=== PATIENT | female | born 1935 | race Caucasian/White ===

== ENCOUNTER 2020-06-30 12:33 | Outpatient (CLI) | payer MEDICARE, SELFPAY ==
--- NOTE | ~2020-06-30 | US_ITS ---
EXAMINATION: US venous doppler LE RT EXAM DATE: 06/30/2020 13:30 INDICATION: Right leg pain. TECHNIQUE: Multiple grayscale, color flow and Doppler images of the right lower extremity deep venous system were obtained and reviewed. There is no prior study for comparison. FINDINGS: The right common femoral, femoral and profunda veins demonstrate normal color flow, respira tory variation, augmentation and compressibility. Compressibility, color flow confirmed within the r ight popliteal, posterior tibial, peroneal, and greater saphenous veins. IMPRESSION: 1. No right lower extremity deep venous thrombosis. Reviewed, dictated and finalized at location B.
[2020-06-30 13:56] LABS: Basophils Absolute Auto 0.1 K/mm3 (0.0-0.1); Basophils Percent Auto 0.6 % (0.2-1.2); Eosinophils Absolute Auto 0.2 K/mm3 (0-0.3); Eosinophils Percent Auto 1.8 % (0-4.4); Hematocrit 45.3 % (37.0-47.0); Hemoglobin 15.6 g/dL (12.0-15.0); Immature Granulocyte Absolute 0.02 K/mm3 (0.00-0.031); Immature Granulocyte Percent A 0.2 % (0-0.5); Lymphocytes Absolute Auto 2.39 K/mm3 (0.9-3.2); Lymphocytes Percent Auto 28.6 % (18.3-44.2); Mean Corpuscular HGB Conc 34.4 g/dl (32-36); Mean Corpuscular Hemoglobin 31.2 pg (26-34); Mean Corpuscular Volume 90.6 fl (80-100); Monocytes Absolute Auto 0.8 K/mm3 (0.1-0.6); Monocytes Percent Auto 9.7 % (2.6-8.5); Neutrophils Percent Auto 59.1 % (45.5-73.1); Platelet Count Result 243 k/mm3 (150-375); Red Cell Distribution Width 12.4 % (11.5-14.5); White Blood Count 8.4 K/mm3 (4.5-10.0)
[2020-06-30 14:09] LABS: D Dimer 0.39 ug/mL (<0.48)
[2020-06-30 14:11] LABS: Alanine Aminotransferase 20 U/L (4-35); Albumin Level 4.3 g/dL (3.5-5.1); Alkaline Phosphatase 64 U/L (38-126); Anion Gap 12 mmol/L (8-16); Aspartate Amino Transferase 28 U/L (14-36); Bilirubin,Total 0.4 mg/dL (0.2-1.3); Blood Urea Nitrogen 11 mg/dL (7-17); Calcium 9.8 mg/dL (8.4-10.2); Carbon Dioxide 24 mmol/L (22-30); Chloride 103 mmol/L (98-107); Estimated Glomerular Filt Rate > 60; Glucose 129 mg/dL (65-105); Potassium 4.1 mmol/L (3.4-5.0); Sodium 139 mmol/L (137-145)
== END 2020-06-30 12:34 | disposition home or self-care (01) ==
LOC: ANHIMG 12:45
PROVIDERS: PCP Physician Assistant; Visit Provider Physician Assistant
DX: M79.661 Pain in right lower leg (principal)
CPT/HCPCS: 36415; 80053; 85025; 85380; 93971

== ENCOUNTER 2020-07-01 11:35 | Observation (INO) | payer MEDICARE, SELFPAY ==
--- NOTE | ~2020-07-01 | CT_ITS ---
EXAMINATION: CT brain wo con EXAM DATE: 07/01/2020 14:26 INDICATION: Transient ischemic attack. Temporary change in awareness. TECHNIQUE: Spiral CT of the head was performed without contrast. Axial, coronal and sagittal images were reviewed. The dose-length product (DLP) for this examination was 605.33 mGy-cm. The exposure w as tailored according to patient size, and iterative reconstruction (ASIR) was used as additional dos e reduction technique. There is no prior study for comparison. FINDINGS: There is no acute intraparenchymal hemorrhage. No evidence of intraparenchymal brain mass lesion. No evidence of acute infarction. Please note that initial head CT has limited sensitivity f or small or acute infarctions. There is moderate periventricular and subcortical hypodensity, nonspec ific but probably related to small vessel ischemic disease. There is moderate prominence of the sul ci and ventricles related to cerebral atrophy. There is intracranial carotid arteriosclerosis. The re are no extra-axial collections. There is no mass effect or midline shift. Patient has had bilate ral ocular lens surgery. There is old left medial orbital wall fracture. Soft tissue is unremarkable. The visualized sinuses and mastoid air cells are well aerated. IMPRESSION: 1. No acute intracranial findings. 2. Chronic age related findings. Reviewed, dictated and finalized at location B.
--- NOTE | ~2020-07-01 | CT_ITS ---
EXAMINATION: CTA brain carotid EXAM DATE: 07/01/2020 23:48 INDICATION: Intermittent neurological symptoms. Temperature change in awareness. Transient ischemic a ttack. TECHNIQUE: Spiral CTA of the carotid arteries was performed with intravenous injection 100 cc of Om nipaque 350. Axial, coronal, sagittal reformatted images reviewed. Additional reformatted images cre ated on dedicated 3-D workstation. NASCET comparable standard used to assess the degree of arterial stenosis. Spiral CT angiogram cerebral arteries performed with the same intravenous injection of con trast. Source images of the brain CTA transferred to dedicated workstation for 3-D rotational image c reation. Coronal, sagittal maximum intensity pixel images also reviewed. The dose-length product (D LP) for this examination was 967.37 mGy-cm. The exposure was tailored according to patient size, an d iterative reconstruction (ASIR) was used as additional dose reduction technique. Correlation is mad e to noncontrast head CT from 07/01/2020. FINDINGS: There is mild bilateral carotid bulb arterial sclerosis with 0% stenosis bilaterally. There is some tortuosity of the left internal carotid artery distally. Carotid siphons are widely patent b ilaterally. The left vertebral artery is dominant. There is right-sided posterior communicating arter y dominant posterior cerebral artery. There is no carotid or vertebral basilar arterial dissection or fibromuscular dysplasia. There are no cerebral artery aneurysms. There is symmetric cerebral arter y arborization. The sagittal, transverse and sigmoid sinuses enhance normally, no venous sinus thromb osis. Internal cerebral veins also enhance normally. There is cerebral and cerebellar atrophy and m icroangiopathy. Bilateral cataract surgery. IMPRESSION: Mild bilateral carotid arteriosclerosis, 0% stenosis bilaterally. Reviewed, dictated and finalized at location B.
--- NOTE | ~2020-07-01 | XR_ITS ---
XR chest 1V DATE: 07/01/2020 14:26 INDICATION: Shortness of breath, left-sided chest pain TECHNIQUE: AP chest COMPARISON: None FINDINGS: Mild cardiac megaly. Mild aortic unfolding. No hilar or mediastinal enlargement. No pulmonary infiltrate or consolidation, pleural effusion or pulmonary vascular congestion or pneumo thorax. Diffuse osteopenia. IMPRESSION: Mild cardiomegaly No active pulmonary disease Reviewed, dictated and finalized at location A.
[2020-07-01 13:28] VITALS: BP 146/76; PULSE 82; RESP 16; TEMP 36.5; O2SAT 96
--- NOTE | 2020-07-01 13:37 | ECG_ITS ---
Measurements Intervals [place] Rate: 67 P: 14 MI: 163 QRS: -50 QRSD: 110 T: 68 QT: 408 QTc: 431 Interpretive Statements SINUS RHYTHM VENTRICULAR PREMATURE COMPLEX LOW QRS VOLTAGE IN PRECORDIAL LEADS LEFT ANTERIOR FASCICULAR BLOCK BORDERLINE ST-T WAVE ABNORMALITY- HIGH LATERAL LEADS BASELINE ARTIFACT- I, II, III, AVR, AVL, AVF ABNORMAL ECG Electronically Signed On 07-01-2020 13:48:38 CDT by Morgan Blanchard D.O.
[2020-07-01 14:04] LABS: Basophils Absolute Auto 0.1 K/mm3 (0.0-0.1); Basophils Percent Auto 0.7 % (0.2-1.2); Eosinophils Absolute Auto 0.2 K/mm3 (0-0.3); Eosinophils Percent Auto 2.4 % (0-4.4); Hemoglobin 15.9 g/dL (12.0-15.0); Immature Granulocyte Absolute 0.02 K/mm3 (0.00-0.031); Immature Granulocyte Percent A 0.3 % (0-0.5); Lymphocytes Percent Auto 37.3 % (18.3-44.2); Mean Corpuscular HGB Conc 34.6 g/dl (32-36); Mean Corpuscular Hemoglobin 31.1 pg (26-34); Mean Platelet Volume 9.3 fl (7.4-10.4); Monocytes Absolute Auto 0.5 K/mm3 (0.1-0.6); Monocytes Percent Auto 7.8 % (2.6-8.5); Neutrophils Absolute Auto 3.5 K/mm3 (1.3-6.7); Neutrophils Percent Auto 51.5 % (45.5-73.1); Platelet Count Result 249 k/mm3 (150-375); Red Blood Count 5.11 M/mm3 (4.2-5.4); Red Cell Distribution Width 12.3 % (11.5-14.5); White Blood Count 6.7 K/mm3 (4.5-10.0)
[2020-07-01 14:15] LABS: Prothrombin Time 12.6 Seconds (11.1-14.7)
[2020-07-01 14:16] LABS: Anion Gap 9 mmol/L (8-16); Blood Urea Nitrogen 11 mg/dL (7-17); Calcium 9.9 mg/dL (8.4-10.2); Carbon Dioxide 28 mmol/L (22-30); Chloride 103 mmol/L (98-107); Estimated CRCL calculation 53 ml/min; Estimated Glomerular Filt Rate > 60; Glucose 117 mg/dL (65-105); Partial Thromboplastin Time 29.2 SECONDS (22.3-36.8); Potassium 4.2 mmol/L (3.4-5.0); Sodium 140 mmol/L (137-145)
[2020-07-01 14:28] LABS: Troponin I < 0.012 ng/mL (0.000-0.034)
[2020-07-01 16:06] VITALS: BP 121/59; PULSE 105; RESP 20; O2SAT 95
--- NOTE | 2020-07-01 17:44 | ED.NEUROSD ---
HPI - Neuro Symptoms/Deficit General Chief Complaint: Neuro Symptoms/Deficit Stated Complaint: more tests for poss TIA Time Seen by Provider: 07/01/20 17:02 Source: patient Mode of arrival: ambulatory Limitations: no limitations History of Present Illness HPI Narrative: Patient presents at the request of her primary care provider for neuro evaluation to rule out possible TIAs. Patient states 2 days ago she had a crown like headache for which she took not aspirin and it resolved. Patient denies any accompanying symptoms to the headache including but not limited to visual changes, nausea, vomiting, diarrhea, fever, chills, changes to hearing. Patient states this morning at approximately 9 AM she began having a tingling throbbing sensation to her right leg that did not stop after rotating her ankle as she typically does. She states that she then started having some tingling to her scalp and across her face. She denies any incidence of inability to speak, muscle weakness, changes in vision or hearing, nausea, vomiting, diaphoresis, chest pain, shortness of breath. Patient reports she also felt slightly dizzy at this time. 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 Patient denies having any chronic medical diseases or taking any daily medications. Patient denies taking any new medications or supplements other than her typical daily vitamins. Patient states that she did have a stressful event in her life a few weeks ago and believes that this is due to the stress. Patient reports that at this time she does not have any symptoms at all and feels well. Related Data Home Medications Medication Instructions Recorded Confirmed tebulvbkanxq-qpg-lnry-FA-vit K tablet PO 07/01/20 [Adults Multivitamin] Allergies Allergy/AdvReac Type Severity Reaction Status Date / Time sulfamethoxazole AdvReac Rash Verified 07/01/20 13:36 [From Sulfamethoxazole-Trimethoprim] trimethoprim AdvReac Rash Verified 07/01/20 13:36 [From Sulfamethoxazole-Trimethoprim] Review of Systems Review of Systems: Narrative: CONSTITUTIONAL: Denies fever, chills, or sweats. EYES: Denies visual changes, redness, or discharge. ENT: Denies rhinorrhea, congestion, sore throat, or otalgia. CARDIOVASCULAR: Denies chest pain, palpitations, or edema. RESPIRATORY: Denies cough or dyspnea. GASTROINTESTINAL: Denies abdominal pain, nausea, vomiting, or diarrhea. GENITOURINARY: Denies dysuria or hematuria. SKIN: Denies rash or itching. MUSCULOSKELETAL: Denies back pain, myalgia, or joint pain NEUROLOGIC: Reports resolved headache,dizziness, tingling denies changes, numbness or weakness. PSYCHIATRIC: Denies anxiety or depression. [facility] Social History Social History (System 06/30/20 @ 13:10 by Maddison Bartlett) Gender identity (if verbalized by the patient): Female Sexual Orientation (if Verbalized by the Patient): Straight or Heterosexual Exam Narrative: Exam Narrative: GENERAL: Well-appearing, well-nourished. Patient smiling and talking appropriately. No asymmetry noted to face. HEAD: Normocephalic, atraumatic. No lacerations or hematomas. EYES: PERRLA and EOMI. ENT: Nares clear, no rhinorrhea or epistaxis. Mucous membranes moist. Oropharynx without tonsillar hypertrophy exudate or other lesions. Bilateral TMs pearly lorenzo nonbulging. No hemotympanum NECK: Supple. No adenopathy or masses. No vertebral tenderness or loss of ROM. CHEST: Clear to auscultation. No respiratory distress. No wheezes rales or rhonchi HEART: Regular rate and rhythm. Normal peripheral pulses. ABDOMEN: Soft, nontender, nondistended, normal active bowel sounds. No bruises noted. EXTREMITIES: Minimal bilateral lower edema. Sensation and range of motion intact to all extremities. No unilateral deficits. SKIN: Warm, dry, no rash. NEURO: No focal deficits. Alert and oriented x3. PSYCH: Normal mood and affect. Course Vital Signs Vital signs
[2020-07-01 17:48] LABS: Add Urine Microscopic? YES; Appearance Urine Clear (Clear); Bacteria Urine Trace /hpf; Bilirubin Urine Negative (Negative); Blood Urine Negative (Negative); Color Urine Yellow (Yellow); Glucose Urine UA Negative (Negative); Ketones Urine Negative (Negative); Leukocyte Esterase Ur 1+ LEU/UL (Negative); Mucus Urine Rare /lpf; Nitrate Urine Negative (Negative); Protein Urine Negative (Negative); Specific Grav Ur 1.015 (1.001-1.035); Squamous Epithelial Cell Urine Rare /hpf (Few); Urobilinogen Urine Negative mg/dL (<2.0)
--- NOTE | 2020-07-01 18:22 | PC.NURSE ---
this RN to bedside. SL inserted per protocol for admission to facility. all explained to patient. tolerated well. resting on stretcher. blanket given. tray ordered. patient does not eat chicken. assisted to use TV. call light in reach.
[2020-07-01 19:36] VITALS: BP 159/79; PULSE 64; RESP 16; O2SAT 100
[2020-07-01 19:45] VITALS: BP 103/51; PULSE 87; RESP 16; O2SAT 94
--- NOTE | 2020-07-01 20:10 | ADMGEN ---
This patient, Rekha Llanos, was admitted to 2 Medical Room 259-. Patient/family oriented to hospital policies and general routines including ID bracelet, bed and alarms, visiting hours, pain management, procedures, bathroom and other care routines, personal items, smoking policy, room service/diet, and visiting hours. Valuables list has been completed. Information on how to activate the Rapid Response Team has been discussed. Patient/Family are encouraged to report perceived risks to care and to ask questions if they do not understand what they are told or what they should do.
[2020-07-01 20:45] VITALS: PULSE 74
[2020-07-01] MEDS: NITROFURANTOIN MONOHYD MACROCR 100 MG CAP PO (20:57)
[2020-07-01 22:00] VITALS: BP 129/61; PULSE 73; RESP 22; TEMP 36.1; O2SAT 96
[2020-07-01 22:06] VITALS: BMI 26.4
[2020-07-02] VITALS: PULSE 56
[2020-07-02 02:08] LABS: Glucose Point of Care 116 (65-105)
[2020-07-02 04:00] VITALS: PULSE 55
[2020-07-02 05:43] VITALS: BP 129/58; PULSE 55; RESP 20; TEMP 36.1; O2SAT 93
[2020-07-02 08:00] VITALS: PULSE 68
--- NOTE | 2020-07-02 08:02 | PM.SD ---
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 The patient woke up in the morning and had cap like headache for which she took a total of 9 baby aspirin. A few hours later she began having in her right leg and foot as well as cramping in her toes. She reports that she gets sensations in her feet frequently over the last month and is usually relieved by rotating her ankle. She had a venous Doppler performed in the ER that was negative for DVT. Shortly after the leg tingling she began having tingling in her scalp in across her face. She no longer had a headache at this time. The tingling involved both sides her face. She did not have any difficulty speaking or any muscle weakness. She had did not have any visual changes. She did feel slightly off/funny. She reports that the symptoms improved after prayer. She has been having some increased urinary frequency. She reports that she has had intermittent dysuria and itching throughout her whole life. It sounds as if she has had a recurrence of the dysuria over the last couple of days. She denies any increased urinary urgency or foul-smelling urine. She denies any nausea, vomiting, decreased appetite, fevers or chills. She reports that she is back to her usual condition and would like to go home. [facility] Past Medical History Medical History Poliomyelitis Surgical History Surgical History History of bilateral cataract extraction Family History Family History Other No significant family history Social History Social History (Updated 07/02/20 @ 08:11 by Felicia Osei DO) Social History: She is and lives in her own home in [place]. She is independent activities of daily living and still drives. She has 5 children who reportedly healthy. 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 Smoking status: Never smoker Alcohol intake: never Substance use: never Substance use type: does not use Gender identity (if verbalized by the patient): Female Sexual Orientation (if Verbalized by the Patient): Straight or Heterosexual Spiritual care concerns: No Same Day Admit/Disch: Med Pre-admit Medications Home Medications Medication Instructions Recorded Confirmed Type vvqlbjnxukhg-pxj-beur-FA-vit K 1 tablet PO DAILY 07/01/20 07/01/20 History [Adults Multivitamin] Exam Narrative: Exam Narrative: PHYSICAL EXAM: WEIGHT 65.6 kg BMI 26.5 General: No acute distress, well-developed well-nourished HEENT: Mucous membranes are moist, no oral pharyngeal erythema, pupils are equal and reactive, head is normocephalic atraumatic Respiratory: Clear to auscultation bilaterally, no increased work of breathing Cardiovascular: Normal S1-S2, regular rate, regular rhythm Gastrointestinal: Soft, nontender, nondistended, positive bowel sounds Skin: No jaundice, no pallor Musculoskeletal: 5/5 instant powder supervisor strength bilaterally, 5/5 dorsiflexion and plantar flexion, trace edema to bilateral lower extremities Neurological: Alert and oriented x4, speech is clear, no facial asymmetry, yqoyqf-me-sylk intact, rapid alternating movements intact with consideration for patient's age, cyep-on-uwhr intact, no paresthesias or sensory deficits Psychiatric: Appropriate mood and affect, pleasant and cooperative : Deferred Hematologic/lymphatic: No bruising, petechiae or lymphadenopathy DS: Data Data Completed and Pending Labs on day of discharge: Labs from last 24 hours 07/02/20 07/01/20 07/01/20 00:33 17:29 13:55 WBC RBC Hgb
[2020-07-02] MEDS: NITROFURANTOIN MONOHYD MACROCR 100 MG CAP PO (08:56)
== END 2020-07-02 10:17 | disposition home or self-care (01) ==
LOC: ANHED 18:44 → ANH2MED 07-02 08:08
PROVIDERS: Physician Assistant; Admitting Provider Internal Medicine; Emergency Provider Emergency Medicine; PCP Physician Assistant; Visit Provider Internal Medicine
DX: R30.0 Dysuria (principal); R29.818 Other symptoms and signs involving the nervous system; R35.0 Frequency of micturition; Z86.12 Personal history of poliomyelitis; N39.0 Urinary tract infection, site not specified
CPT/HCPCS: 36415; 70450; 70496; 70498; 71045; 80048; 81001; 84484; 85025; 85610; 85730; 87086; 87088; 93005; 99285; A9270; G0378; Q9967

== ENCOUNTER 2020-08-06 12:13 | Inpatient (IN) | payer MEDICARE, SELFPAY ==
--- NOTE | ~2020-08-06 | CT_ITS ---
EXAMINATION: CT abdomen pelvis w con DATE: 08/06/2020 13:25 INDICATION: Low abdominal pain. TECHNIQUE: Computed tomography (CT) of the abdomen and pelvis was performed with 100 mL Omnipaque 350 intravenous contrast. Automated exposure control and iterative reconstruction technique were employe d. The dose-length product was 359.79 mGy-cm. COMPARISON: None. FINDINGS: The visualized portions of the lung bases demonstrate mild atelectasis. Calcified right zeferino g nodules are consistent with old granulomatous disease. No pleural effusion. The heart size is koki l. No pericardial effusion. There is a small sliding hiatal hernia. There is a 5 mm cyst in the liver . The gallbladder, spleen, pancreas, adrenal glands, and kidneys are normal. There are scattered dive rticula in the colon. There is fat stranding around a diverticulum in distal descending colon, consis tent with diverticulitis. There are no dilated loops of bowel. The appendix is not visualized. There are no pathologically enlarged lymph nodes. There is no free intraperitoneal fluid. There is severe t horacic and lumbar spondylosis. IMPRESSION: 1. Acute diverticulitis of distal descending colon. No perforation or abscess. Reviewed, dictated and finalized at location B. HIC DESIGN INTERN
[2020-08-06 12:13] VITALS: BP 123/77; PULSE 54; RESP 18; TEMP 37.6; O2SAT 95
[2020-08-06 12:53] LABS: Basophils Percent Auto 0.2 % (0.2-1.2); Hemoglobin 15.7 g/dL (12.0-15.0); Immature Granulocyte Percent A 1.3 % (0-0.5); Lymphocytes Absolute Auto 1.24 K/mm3 (0.9-3.2); Lymphocytes Percent Auto 5.2 % (18.3-44.2); Mean Corpuscular HGB Conc 34.9 g/dl (32-36); Mean Corpuscular Hemoglobin 31.1 pg (26-34); Mean Corpuscular Volume 89.1 fl (80-100); Mean Platelet Volume 9.3 fl (7.4-10.4); Monocytes Percent Auto 4.3 % (2.6-8.5); Neutrophils Absolute Auto 21.3 K/mm3 (1.3-6.7); Platelet Count Result 242 k/mm3 (150-375); Red Blood Count 5.05 M/mm3 (4.2-5.4); Red Cell Distribution Width 12.3 % (11.5-14.5); White Blood Count 23.9 K/mm3 (4.5-10.0)
--- NOTE | 2020-08-06 12:56 | ED.ABDPAIN ---
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 Associated with nausea and dry heaves. Patient denies any fever, chills, vomiting, diarrhea, constipation, urinary symptoms, exposure to anybody with COVID-19 MD elicited complaint: abdominal pain Related Data Home Medications Medication Instructions Recorded Confirmed Adults Multivitamin 1 tablet PO DAILY 07/01/20 07/01/20 Allergies Allergy/AdvReac Type Severity Reaction Status Date / Time sulfamethoxazole AdvReac Rash Verified 07/01/20 13:36 [From Sulfamethoxazole-Trimethoprim] trimethoprim AdvReac Rash Verified 07/01/20 13:36 [From Sulfamethoxazole-Trimethoprim] Review of Systems Review of Systems: Narrative: CONSTITUTIONAL: Denies fever, chills, or sweats. EYES: Denies visual changes, redness, or discharge. ENT: Denies rhinorrhea, congestion, sore throat, or otalgia. CARDIOVASCULAR: Denies chest pain, palpitations, or edema. RESPIRATORY: Denies cough or dyspnea. GASTROINTESTINAL: Denies abdominal pain, nausea, vomiting, or diarrhea. GENITOURINARY: Abdominal pain SKIN: Denies rash or itching. MUSCULOSKELETAL: Denies back pain, joint pain, or myalgia. NEUROLOGIC: Denies headache, numbness, or weakness. PSYCHIATRIC: Denies anxiety or depression. [facility] Past Medical History Medical History Poliomyelitis Surgical History Surgical History History of bilateral cataract extraction Family History Family History Other No significant family history Social History Social History Social History: She is and lives in her own home in [place]. She is independent activities of daily living and still drives. She has 5 children who reportedly healthy. 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 Smoking status: Never smoker Alcohol intake: never Substance use: never Substance use type: does not use Gender identity (if verbalized by the patient): Female Sexual Orientation (if Verbalized by the Patient): Straight or Heterosexual Spiritual care concerns: No Exam Narrative: Exam Narrative: General appearance: Well-developed, well-nourished Skin: Normal color Head: Normocephalic, nontraumatic Eyes: Clear conjunctiva ENT: Oropharynx normal, ears normal, nose normal Neck: Supple, nontender Chest and respiratory: Airway patent, no respiratory distress, no accessory muscle use Heart: Regular rate/rhythm Abdomen: Soft, mild to moderate tenderness left lower quadrant, no guarding or rebound, quiet bowel sounds Vascular: Normal peripheral pulses, normal capillary refill. Musculoskeletal: Normal range of motion, nontender back Neurologic: Alert and oriented ?3, GLASS SELECTOR is normal as tested, no gross motor deficit Course Course Emergency Course: Stable Vital Signs Vital signs: Vital Signs Temperature 37.6 C H 08/06/20 12:13 Pulse Rate 54 L 08/06/20 12:13 Respiratory Rate 18 08/06/20 12:13 Blood Pressure 123/77 08/06/20 12:13 Pulse Oximetry 95 08/06/20 12:13 Temperature 37.6 C H 08/06/20 12:13 Pulse Rate 87 08/06/20 15:04 Respiratory Rate 18 08/06/20 15:04 Blood Pressure 103/49 L 1
[2020-08-06] MEDS: MORPHINE SULFATE (*CRX) 4 MG/ML INJ IV PUSH (12:59)
[2020-08-06] MEDS: SODIUM CHLORIDE 0.9% IV 1,000 ML 500 ML IV CONT (13:00)
[2020-08-06] MEDS: ONDANSETRON INJ 4 MG/2 ML VIAL IV PUSH (13:00)
[2020-08-06 13:03] LABS: Add Urine Microscopic? YES; Appearance Urine Clear (Clear); Bilirubin Urine Negative (Negative); Blood Urine Negative (Negative); Color Urine Yellow (Yellow); Glucose Urine UA Negative (Negative); Ketones Urine Trace mg/dL (Negative); Leukocyte Esterase Ur Negative LEU/UL (Negative); Mucus Urine Rare /lpf; Nitrate Urine Negative (Negative); Protein Urine 1+ mg/dL (Negative); Specific Grav Ur 1.015 (1.001-1.035); Squamous Epithelial Cell Urine Few /hpf (Few); Urobilinogen Urine Negative mg/dL (<2.0); WBC Urine 0-3 /hpf
[2020-08-06 13:10] LABS: Albumin Level 4.3 g/dL (3.5-5.1); Alkaline Phosphatase 70 U/L (38-126); Anion Gap 16 mmol/L (8-16); Aspartate Amino Transferase 34 U/L (14-36); Bilirubin,Total 0.8 mg/dL (0.2-1.3); Blood Urea Nitrogen 9 mg/dL (7-17); Calcium 9.5 mg/dL (8.4-10.2); Carbon Dioxide 21 mmol/L (22-30); Chloride 98 mmol/L (98-107); Estimated CRCL calculation 47 ml/min; Estimated Glomerular Filt Rate > 60; Glucose 223 mg/dL (65-105); Lipase 38 U/L (23-300); Potassium 3.9 mmol/L (3.4-5.0); Sodium 135 mmol/L (137-145)
[2020-08-06 13:38] LABS: Alanine Aminotransferase 22 U/L (4-35)
[2020-08-06 15:04] VITALS: BP 103/49; PULSE 87; RESP 18; O2SAT 98
[2020-08-06] MEDS: metroNIDAZOLE 500 MG/ISO 100ML 500 MG/100 ML BAG 100 MG IVPB (17:39)
[2020-08-06 17:40] VITALS: BP 104/52; PULSE 95; RESP 18; O2SAT 68
[2020-08-06 18:00] VITALS: BP 105/39; PULSE 76; RESP 16; TEMP 36.8; O2SAT 99; BMI 27.2
--- NOTE | 2020-08-06 18:00 | ADMGEN ---
This patient, Rekha Llanos, was admitted to Medical Room 345-. Patient/family oriented to hospital policies and general routines including ID bracelet, bed and alarms, visiting hours, pain management, procedures, bathroom and other care routines, personal items, smoking policy, room service/diet, and visiting hours. Information on how to activate the Rapid Response Team has been discussed. Patient/Family are encouraged to report perceived risks to care and to ask questions if they do not understand what they are told or what they should do.
[2020-08-06] MEDS: SODIUM CHLORIDE 0.9% IV 1,000 ML 75 ML IV CONT (18:32)
[2020-08-06 18:56] VITALS: BMI 27.1
[2020-08-06 19:03] VITALS: O2SAT 90
--- NOTE | 2020-08-06 20:00 | PM.IMHP ---
H&P: HPI History of Present Illness Date/Time: 08/06/20 20:00 Chief complaint: Abdominal pain. Narrative: Rekha Llanos is a pleasant 84-year-old female with a history of polio as a child but no other significant medical conditions who presented to the emergency department earlier today from home for evaluation of lower abdominal pain. She seems to be somewhat forgetful and is not a great historian, but from what I can gather she has had lower abdominal discomfort for upwards of 1 weeks time however it has gotten worse over the last 24 hours. She has a difficult time describing the pain and tells me that has been manageable home with acetaminophen q.day. Additionally she reports intermittent nausea and dry heaves, however she tells me she has been able to tolerate a diet. Her stools have been a bit loose, with her last bowel movement being yesterday morning. She denies fever, chills, sweats, vomiting, and blood or mucus in the stool. Review of Systems Review of Systems: Narrative: Twelve systems were reviewed with pertinent positives and negatives as per HPI. She had a mild headache earlier but that has since resolved. No cold or flu symptoms. She denies sick contacts and exposure to those positive for COVID-19. No chest pain or shortness of breath. No cough. Weight has remained stable. Except as documented, all other systems were reviewed and are negative. [facility] Past Medical History Medical History (Updated 08/06/20 @ 20:49 by Selin King PA-C) Poliomyelitis Surgical History Surgical History (Updated 08/06/20 @ 20:47 by Selin King PA-C) History of bilateral cataract extraction History of orthopedic surgery Right heel cord lengthening as a child. Family History Family History Son Diabetes mellitus COPD (chronic obstructive pulmonary disease) Father Cerebrovascular accident Mother Bladder cancer Sibling Lung cancer Social History Social History (Updated 08/06/20 @ 20:48 by Selin King PA-C) Social History: She is and lives in her own home in [place]. She is independent activities of daily living and still drives. She had 5 children , 1 in his 50s from complications of type 1 diabetes, the other for are reportedly healthy. She denies alcohol, tobacco, illicit substance use. Her daughter Adia is her surrogate decision maker and she wishes to be a full code. Smoking status: Never smoker Alcohol intake: former Substance use: never Substance use type: does not use Gender identity (if verbalized by the patient): Female Sexual Orientation (if Verbalized by the Patient): Straight or Heterosexual Spiritual care concerns: No Meds Home Medications and Allergies Home Medications Medication Instructions Recorded Confirmed Type Adults Multivitamin 1 tablet PO DAILY 07/01/20 08/06/20 History ginkgo biloba [Ginkoba] 40 mg PO DAILY 08/06/20 08/06/20 History Allergies Allergy/AdvReac Type Severity Reaction Status Date / Time sulfamethoxazole AdvReac Rash Verified 08/06/20 20:12 [From Sulfamethoxazole-Trimethoprim] trimethoprim AdvReac Rash Verified 08/06/20 20:12 [From Sulfamethoxazole-Trimethoprim] Vital Signs Vital Signs - 24 hr 08/06/20 12:13 08/06/20 15:04 08/06/20 17:40 Temperature 99.7 F H Pulse Rate 54 L 87 95 Respiratory Rate 18 18 18 Blood Pressure 123/77 103/49 L 104/52 L Pulse Oximetry 95 98 68 L 08/06/20 18:00 08/06/20 19:03 Temperature 98.3 F Pulse Rate 76 Respiratory Rate 16 Blood Pressure 105/39 L Pulse Oximetry 99 90 Exam Narrative: Exam Narrative: General: Well-developed elderly female supine in bed in no distress. Weight: 67.4 kg. BMI: 27.2. HEENT: Normocephalic, atraumatic. PERRL, EOMI. Sclerae anicteric. Oral mucosa tacky. Neck: Supple. Respiratory: Lungs are clear to auscultation bilaterally. Card
[2020-08-06 21:53] VITALS: BP 98/44; PULSE 71; RESP 16; TEMP 36.2; O2SAT 94
[2020-08-07 06:33] LABS: Basophils Absolute Auto 0.1 K/mm3 (0.0-0.1); Basophils Percent Auto 0.4 % (0.2-1.2); Eosinophils Percent Auto 0.3 % (0-4.4); Hematocrit 36.9 % (37.0-47.0); Hemoglobin 12.2 g/dL (12.0-15.0); Immature Granulocyte Absolute 0.07 K/mm3 (0.00-0.031); Immature Granulocyte Percent A 0.5 % (0-0.5); Lymphocytes Absolute Auto 2.12 K/mm3 (0.9-3.2); Lymphocytes Percent Auto 14.9 % (18.3-44.2); Mean Corpuscular HGB Conc 33.1 g/dl (32-36); Mean Corpuscular Hemoglobin 30.8 pg (26-34); Mean Corpuscular Volume 93.2 fl (80-100); Mean Platelet Volume 9.4 fl (7.4-10.4); Monocytes Absolute Auto 0.9 K/mm3 (0.1-0.6); Monocytes Percent Auto 6.6 % (2.6-8.5); Neutrophils Absolute Auto 11.1 K/mm3 (1.3-6.7); Neutrophils Percent Auto 77.3 % (45.5-73.1); Platelet Count Result 183 k/mm3 (150-375); Red Blood Count 3.96 M/mm3 (4.2-5.4); Red Cell Distribution Width 12.9 % (11.5-14.5); White Blood Count 14.3 K/mm3 (4.5-10.0)
[2020-08-07 06:47] LABS: Anion Gap 6 mmol/L (8-16); Blood Urea Nitrogen 11 mg/dL (7-17); Calcium 8.4 mg/dL (8.4-10.2); Carbon Dioxide 27 mmol/L (22-30); Chloride 104 mmol/L (98-107); Estimated CRCL calculation 47 ml/min; Estimated Glomerular Filt Rate > 60; Glucose 107 mg/dL (65-105); Potassium 3.8 mmol/L (3.4-5.0); Sodium 137 mmol/L (137-145)
[2020-08-07 06:48] VITALS: BP 94/42; PULSE 62; RESP 16; TEMP 36.3; O2SAT 93
[2020-08-07 06:52] LABS: Hemoglobin A1C 5.1 % (<5.7)
[2020-08-07] MEDS: ACETAMINOPHEN 325 MG TABLET 650 MG PO ×2 (08:33→15:16)
--- NOTE | 2020-08-07 10:34 | PM.IMPN ---
Progress Note: A&P Assessment and Plan (1) Hyperglycemia: Code(s): R73.9 - Hyperglycemia, unspecified Status: Acute Assessment and Plan: Is unlikely the patient has diabetes most likely patient has very slight glucose intolerant her hemoglobin A1c is 5.1 (2) Diverticulitis large intestine: Qualifiers: Diverticulitis bleeding: without bleeding Diverticulitis complication: without perforation or abscess Qualified Code(s): K57.32 - Diverticulitis of large intestine without perforation or abscess without bleeding Code(s): K57.32 - Diverticulitis of large intestine without perforation or abscess without bleeding Status: Acute Assessment and Plan: 08/07/20 10:34 Patient 84-year-old female with history of polio as a child there are no other significant medical issues, patient presented emergency department with a complaint of lower abdominal pain for about a week it was tolerable and was controlled by acetaminophen however a pain was getting worse see developed nausea and vomiting and had loose BM patient presented emergency department for further evaluation and patient is found to have acute diverticulitis of distal descending colon. No perforation or abscess. Patient was started Zosyn, this morning patient had a breakfast is feeling better denies any abdominal pain nausea or vomiting, patient ambulating in the room without any difficulty, patient denies any fever or chills, will continue to monitor the patient if remains clinically stable may discharge the patient home tomorrow, the with concern the patient may have hyperglycemia, see had fasting blood sugar of 107 and hemoglobin A1c of 5.1, it seems patient is a very slight glucose intolerance, will continue to monitor no intervention is needed Subjective Date/time seen: 08/07/20 10:34 Patient 84-year-old female with history of polio as a child there are no other significant medical issues, patient presented emergency department with a complaint of lower abdominal pain for about a week it was tolerable and was controlled by acetaminophen however a pain was getting worse see developed nausea and vomiting and had loose BM patient presented emergency department for further evaluation and patient is found to have acute diverticulitis of distal descending colon. No perforation or abscess. Patient was started Zosyn, this morning patient had a breakfast is feeling better denies any abdominal pain nausea or vomiting, patient ambulating in the room without any difficulty, patient denies any fever or chills, will continue to monitor the patient if remains clinically stable may discharge the patient home tomorrow, the with concern the patient may have hyperglycemia, see had fasting blood sugar of 107 and hemoglobin A1c of 5.1, it seems patient is a very slight glucose intolerance, will continue to monitor no intervention is needed Review of Systems Review of Systems: All systems reviewed & are unremarkable except as noted in HPI and below Exam Narrative: Exam Narrative: Elderly frail Patient is comfortable, NAD HEENT: eyes are clear and none icteric LUNGS:CTA HEART: RR S1S2 ABD: BS+, Soft and tender in left lower quadrant Lower extremities: no edema SKIN: nonjaundiced Neuro: grossly intact. Objective Data Vital Signs Vital Signs: Vital Signs - 24 hr 08/06/20 12:13 08/06/20 15:04 08/06/20 17:40 Temperature 99.7 F H Pulse Rate 54 L 87 95 Respiratory Rate 18 18 18 Blood Pressure 123/77 103/49 L 104/52 L Pulse Oximetry 95 98 68 L 08/06/20 18:00 08/06/20 19:03 08/06/20 21:53 Temperature 98.3 F 97.2 F L Pulse Rate 76 71 Respiratory Rate 16 16 Blood Pressure 105/39 L 98/44 L Pulse Oximetry 99 90 94 08/07/20 06:48 Temperature 97.3 F L Pulse Rate 62 Respiratory Rate 16 Blood Pressure 94/42 L Pulse Oximetry 93 Intake/Output Intake/Output: Intake & Output 08/04/20 08/05/20 08/06/20 08/07/20 23:59 23:59 23:59 23:59 Intake Tot
[2020-08-07 13:07] VITALS: O2SAT 93
[2020-08-07 14:00] VITALS: BP 130/45; PULSE 64; RESP 18; TEMP 36.2; O2SAT 96
[2020-08-07 22:00] VITALS: BP 127/41; PULSE 62; RESP 16; TEMP 36.9; O2SAT 96
[2020-08-08 05:04] VITALS: BP 121/42; PULSE 59; RESP 16; TEMP 36.7; O2SAT 97
[2020-08-08] MEDS: ACETAMINOPHEN 325 MG TABLET 650 MG PO ×2 (05:07→22:35)
[2020-08-08 05:47] LABS: Hematocrit 37.5 % (37.0-47.0); Hemoglobin 12.5 g/dL (12.0-15.0); Mean Corpuscular HGB Conc 33.3 g/dl (32-36); Mean Corpuscular Hemoglobin 31.3 pg (26-34); Mean Corpuscular Volume 93.8 fl (80-100); Mean Platelet Volume 9.4 fl (7.4-10.4); Platelet Count Result 188 k/mm3 (150-375); Red Cell Distribution Width 12.8 % (11.5-14.5); White Blood Count 8.9 K/mm3 (4.5-10.0)
[2020-08-08 06:05] LABS: Alanine Aminotransferase 11 U/L (4-35); Albumin Level 3.3 g/dL (3.5-5.1); Alkaline Phosphatase 55 U/L (38-126); Anion Gap 8 mmol/L (8-16); Aspartate Amino Transferase 21 U/L (14-36); Bilirubin,Total 0.6 mg/dL (0.2-1.3); Blood Urea Nitrogen 8 mg/dL (7-17); Calcium 8.4 mg/dL (8.4-10.2); Carbon Dioxide 25 mmol/L (22-30); Chloride 106 mmol/L (98-107); Estimated CRCL calculation 54 ml/min; Estimated Glomerular Filt Rate > 60; Glucose 131 mg/dL (65-105); Magnesium 2.1 mg/dL (1.6-2.3); Potassium 3.5 mmol/L (3.4-5.0); Sodium 139 mmol/L (137-145)
[2020-08-08 08:00] VITALS: PULSE 59; RESP 16; O2SAT 97
[2020-08-08 14:00] VITALS: BP 131/50; PULSE 63; RESP 14; TEMP 36.9; O2SAT 98
--- NOTE | 2020-08-08 14:45 | PM.IMPN ---
Progress Note: A&P Assessment and Plan (1) Hyperglycemia: Code(s): R73.9 - Hyperglycemia, unspecified Status: Acute Assessment and Plan: Is unlikely the patient has diabetes most likely patient has very slight glucose intolerant her hemoglobin A1c is 5.1 (2) Diverticulitis large intestine: Qualifiers: Diverticulitis bleeding: without bleeding Diverticulitis complication: without perforation or abscess Qualified Code(s): K57.32 - Diverticulitis of large intestine without perforation or abscess without bleeding Code(s): K57.32 - Diverticulitis of large intestine without perforation or abscess without bleeding Status: Acute Assessment and Plan: 08/08/20 14:45 Patient 84-year-old female with history of polio as a child there are no other significant medical issues, patient presented emergency department with a complaint of lower abdominal pain for about a week it was tolerable and was controlled by acetaminophen however a pain was getting worse see developed nausea and vomiting and had loose BM patient presented emergency department for further evaluation and patient is found to have acute diverticulitis of distal descending colon. No perforation or abscess. Patient was started Zosyn, this morning patient had a breakfast is feeling better denies any abdominal pain nausea or vomiting, patient ambulating in the room without any difficulty, patient denies any fever or chills, will continue to monitor the patient if remains clinically stable may discharge the patient home tomorrow, the with concern the patient may have hyperglycemia, see had fasting blood sugar of 107 and hemoglobin A1c of 5.1, it seems patient is a very slight glucose intolerance, will continue to monitor no intervention is needed Today patient states had a BM there was no bleeding, today ate her breakfast clear liquids, denies any abdominal pain nausea vomiting or diarrhea, patient is able to tolerate clear liquid will advance the diet full liquids and monitor overnight if remains clinically stable may discharge the patient home tomorrow. Subjective Date/time seen: 08/08/20 14:45 Patient 84-year-old female with history of polio as a child there are no other significant medical issues, patient presented emergency department with a complaint of lower abdominal pain for about a week it was tolerable and was controlled by acetaminophen however a pain was getting worse see developed nausea and vomiting and had loose BM patient presented emergency department for further evaluation and patient is found to have acute diverticulitis of distal descending colon. No perforation or abscess. Patient was started Zosyn, this morning patient had a breakfast is feeling better denies any abdominal pain nausea or vomiting, patient ambulating in the room without any difficulty, patient denies any fever or chills, will continue to monitor the patient if remains clinically stable may discharge the patient home tomorrow, the with concern the patient may have hyperglycemia, see had fasting blood sugar of 107 and hemoglobin A1c of 5.1, it seems patient is a very slight glucose intolerance, will continue to monitor no intervention is needed Today patient states had a BM there was no bleeding, today ate her breakfast clear liquids, denies any abdominal pain nausea vomiting or diarrhea, patient is able to tolerate clear liquid will advance the diet full liquids and monitor overnight if remains clinically stable may discharge the patient home tomorrow Review of Systems Review of Systems: All systems reviewed & are unremarkable except as noted in HPI and below Exam Narrative: Exam Narrative: Elderly frail Patient is comfortable, NAD HEENT: eyes are clear and none icteric LUNGS:CTA HEART: RR S1S2 ABD: BS+, Soft and tender in left lower quadrant Lower extremities: no edema SKIN: nonjaundiced Neuro: grossly intact. Objective Data Vital Signs Vital Signs: Vital
--- NOTE | 2020-08-08 18:27 | PC.NURSE ---
stools were loose.
[2020-08-08 22:00] VITALS: PULSE 59; RESP 14; TEMP 36.4; O2SAT 94
[2020-08-09 05:58] LABS: Hematocrit 38.2 % (37.0-47.0); Hemoglobin 12.8 g/dL (12.0-15.0); Mean Corpuscular HGB Conc 33.5 g/dl (32-36); Mean Corpuscular Hemoglobin 31.2 pg (26-34); Mean Corpuscular Volume 93.2 fl (80-100); Mean Platelet Volume 9.2 fl (7.4-10.4); Platelet Count Result 203 k/mm3 (150-375); Red Cell Distribution Width 12.6 % (11.5-14.5)
[2020-08-09 06:00] VITALS: BP 129/57; PULSE 49; RESP 15; TEMP 37.2; O2SAT 94
[2020-08-09 06:15] LABS: Alanine Aminotransferase 14 U/L (4-35); Albumin Level 3.5 g/dL (3.5-5.1); Alkaline Phosphatase 65 U/L (38-126); Anion Gap 7 mmol/L (8-16); Aspartate Amino Transferase 27 U/L (14-36); Bilirubin,Total 0.6 mg/dL (0.2-1.3); Blood Urea Nitrogen 4 mg/dL (7-17); Calcium 8.7 mg/dL (8.4-10.2); Carbon Dioxide 26 mmol/L (22-30); Chloride 108 mmol/L (98-107); Estimated CRCL calculation 54 ml/min; Estimated Glomerular Filt Rate > 60; Glucose 106 mg/dL (65-105); Potassium 3.6 mmol/L (3.4-5.0); Sodium 141 mmol/L (137-145)
[2020-08-09 08:00] VITALS: PULSE 49; RESP 15; O2SAT 94
[2020-08-09 15:08] VITALS: BP 141/58; PULSE 59; RESP 16; TEMP 36.2; O2SAT 96
[2020-08-09] MEDS: ACETAMINOPHEN 325 MG TABLET 650 MG PO (15:25)
--- NOTE | 2020-08-09 15:48 | PM.IMPN ---
Progress Note: A&P Assessment and Plan (1) Hyperglycemia: Code(s): R73.9 - Hyperglycemia, unspecified Status: Acute Assessment and Plan: Is unlikely the patient has diabetes most likely patient has very slight glucose intolerant her hemoglobin A1c is 5.1 (2) Diverticulitis large intestine: Qualifiers: Diverticulitis bleeding: without bleeding Diverticulitis complication: without perforation or abscess Qualified Code(s): K57.32 - Diverticulitis of large intestine without perforation or abscess without bleeding Code(s): K57.32 - Diverticulitis of large intestine without perforation or abscess without bleeding Status: Acute Assessment and Plan: 08/08/20 14:45 Patient 84-year-old female with history of polio as a child there are no other significant medical issues, patient presented emergency department with a complaint of lower abdominal pain for about a week it was tolerable and was controlled by acetaminophen however a pain was getting worse see developed nausea and vomiting and had loose BM patient presented emergency department for further evaluation and patient is found to have acute diverticulitis of distal descending colon. No perforation or abscess. Patient was started Zosyn, this morning patient had a breakfast is feeling better denies any abdominal pain nausea or vomiting, patient ambulating in the room without any difficulty, patient denies any fever or chills, will continue to monitor the patient if remains clinically stable may discharge the patient home tomorrow, the with concern the patient may have hyperglycemia, see had fasting blood sugar of 107 and hemoglobin A1c of 5.1, it seems patient is a very slight glucose intolerance, will continue to monitor no intervention is needed Today patient states had a BM there was no bleeding, patient was able to tolerate full liquid diet, will advance her diet to regular will monitor overnight if remains clinically stable will discharge the patient home tomorrow on oral antibiotic. Subjective Date/time seen: 08/08/20 14:45 Patient 84-year-old female with history of polio as a child there are no other significant medical issues, patient presented emergency department with a complaint of lower abdominal pain for about a week it was tolerable and was controlled by acetaminophen however a pain was getting worse see developed nausea and vomiting and had loose BM patient presented emergency department for further evaluation and patient is found to have acute diverticulitis of distal descending colon. No perforation or abscess. Patient was started Zosyn, this morning patient had a breakfast is feeling better denies any abdominal pain nausea or vomiting, patient ambulating in the room without any difficulty, patient denies any fever or chills, will continue to monitor the patient if remains clinically stable may discharge the patient home tomorrow, the with concern the patient may have hyperglycemia, see had fasting blood sugar of 107 and hemoglobin A1c of 5.1, it seems patient is a very slight glucose intolerance, will continue to monitor no intervention is needed Today patient states had a BM there was no bleeding, patient was able to tolerate full liquid diet, will advance her diet to regular will monitor overnight if remains clinically stable will discharge the patient home tomorrow on oral antibiotic. Review of Systems Review of Systems: All systems reviewed & are unremarkable except as noted in HPI and below Exam Narrative: Exam Narrative: Elderly frail Patient is comfortable, NAD HEENT: eyes are clear and none icteric LUNGS:CTA HEART: RR S1S2 ABD: BS+, Soft and tender in left lower quadrant Lower extremities: no edema SKIN: nonjaundiced Neuro: grossly intact. Objective Data Vital Signs Vital Signs: Vital Signs - 24 hr 08/08/20 22:00 08/09/20 06:00 08/09/20 08:00 Temperature 97.5 F L 98.9 F Pulse Rate 59 L 49 L 49 L Respiratory Rate 14 1
[2020-08-09] MEDS: ACYCLOVIR 5% OINTMENT 15 GM TUBE 1 APPLIC TOPICAL (16:54)
[2020-08-09 21:08] VITALS: BP 92/62; PULSE 60; RESP 16; TEMP 36.1; O2SAT 98
[2020-08-10] MEDS: ACETAMINOPHEN 325 MG TABLET 650 MG PO (03:40)
[2020-08-10 05:45] VITALS: BP 139/50; PULSE 55; RESP 16; TEMP 36.1; O2SAT 94
[2020-08-10 06:21] LABS: Hematocrit 38.2 % (37.0-47.0); Hemoglobin 13.2 g/dL (12.0-15.0); Mean Corpuscular HGB Conc 34.6 g/dl (32-36); Mean Corpuscular Hemoglobin 31.1 pg (26-34); Mean Corpuscular Volume 89.9 fl (80-100); Platelet Count Result 225 k/mm3 (150-375); Red Blood Count 4.25 M/mm3 (4.2-5.4); Red Cell Distribution Width 12.4 % (11.5-14.5); White Blood Count 6.3 K/mm3 (4.5-10.0)
[2020-08-10 06:31] LABS: Alanine Aminotransferase 18 U/L (4-35); Albumin Level 3.5 g/dL (3.5-5.1); Alkaline Phosphatase 67 U/L (38-126); Anion Gap 8 mmol/L (8-16); Aspartate Amino Transferase 30 U/L (14-36); Bilirubin,Total 0.6 mg/dL (0.2-1.3); Blood Urea Nitrogen 4 mg/dL (7-17); Calcium 8.8 mg/dL (8.4-10.2); Carbon Dioxide 26 mmol/L (22-30); Chloride 105 mmol/L (98-107); Estimated CRCL calculation 47 ml/min; Estimated Glomerular Filt Rate > 60; Glucose 103 mg/dL (65-105); Potassium 3.5 mmol/L (3.4-5.0); Sodium 139 mmol/L (137-145)
[2020-08-10] MEDS: ACYCLOVIR 5% OINTMENT 15 GM TUBE 1 APPLIC TOPICAL (08:14)
--- NOTE | 2020-08-10 09:42 | PM.DS ---
DS: Admitting Diagnosis Admitting Diagnosis Admitting Diagnosis: Diverticulitis DS: Discharge Diagnosis Discharge Diagnosis (1) Hyperglycemia: Code(s): R73.9 - Hyperglycemia, unspecified Status: Acute Assessment and Plan: Is unlikely the patient has diabetes most likely patient has very slight glucose intolerant her hemoglobin A1c is 5.1 (2) Diverticulitis large intestine: Qualifiers: Diverticulitis bleeding: without bleeding Diverticulitis complication: without perforation or abscess Qualified Code(s): K57.32 - Diverticulitis of large intestine without perforation or abscess without bleeding Code(s): K57.32 - Diverticulitis of large intestine without perforation or abscess without bleeding Status: Acute Assessment and Plan: 08/08/20 14:45 Patient 84-year-old female with history of polio as a child there are no other significant medical issues, patient presented emergency department with a complaint of lower abdominal pain for about a week it was tolerable and was controlled by acetaminophen however a pain was getting worse see developed nausea and vomiting and had loose BM patient presented emergency department for further evaluation and patient is found to have acute diverticulitis of distal descending colon. No perforation or abscess. Patient was started Zosyn, this morning patient had a breakfast is feeling better denies any abdominal pain nausea or vomiting, patient ambulating in the room without any difficulty, patient denies any fever or chills, will continue to monitor the patient if remains clinically stable may discharge the patient home tomorrow, the with concern the patient may have hyperglycemia, see had fasting blood sugar of 107 and hemoglobin A1c of 5.1, it seems patient is a very slight glucose intolerance, will continue to monitor no intervention is needed Today patient states had a BM there was no bleeding, patient was able to tolerate full liquid diet, will advance her diet to regular will monitor overnight if remains clinically stable will discharge the patient home tomorrow on oral antibiotic. DS: Summary Hospital Course Reason for hospitalization: Chief complaint: Abdominal pain. Narrative: Rekha Llanos is a pleasant 84-year-old female with a history of polio as a child but no other significant medical conditions who presented to the emergency department earlier today from home for evaluation of lower abdominal pain. She seems to be somewhat forgetful and is not a great historian, but from what I can gather she has had lower abdominal discomfort for upwards of 1 weeks time however it has gotten worse over the last 24 hours. She has a difficult time describing the pain and tells me that has been manageable home with acetaminophen q.day. Additionally she reports intermittent nausea and dry heaves, however she tells me she has been able to tolerate a diet. Her stools have been a bit loose, with her last bowel movement being yesterday morning. She denies fever, chills, sweats, vomiting, and blood or mucus in the stool. Hospital Course: Patient 84-year-old female with history of polio as a child there are no other significant medical issues, patient presented emergency department with a complaint of lower abdominal pain for about a week it was tolerable and was controlled by acetaminophen however a pain was getting worse see developed nausea and vomiting and had loose BM patient presented emergency department for further evaluation and patient is found to have acute diverticulitis of distal descending colon. No perforation or abscess. Patient was started Zosyn, this morning patient had a breakfast is feeling better denies any abdominal pain nausea or vomiting, patient ambulating in the room without any difficulty, patient denies any fever or chills, will continue to monitor the patient if remains clinically stable may discharge the patient home tomorrow, the with concern the patient may gonzalez
== END 2020-08-10 11:03 | disposition home or self-care (01) | DRG 392 ==
LOC: ANHED 17:59 → ANH3MED 18:14
PROVIDERS: Physician Assistant; Admitting Provider Family Medicine; Emergency Provider Emergency Medicine; PCP Physician Assistant; Visit Provider Family Medicine
DX: K57.32 Diverticulitis of large intestine without perforation or abscess without bleeding (principal); Z86.12 Personal history of poliomyelitis
CPT/HCPCS: 36415; 74177; 80048; 80053; 81001; 83036; 83690; 83735; 85025; 85027; 96361; 96365; 96366; 96367; 96368; 96375; 99285; 99291; A9270; G0378; J1956; J2270; J2405; J2543; J7030; Q9967

== ENCOUNTER 2020-08-14 08:47 | Emergency (ER) | payer MEDICARE, SELFPAY ==
[2020-08-14] VITALS (25 sets, daily range): BP systolic 98–160; BP diastolic 65–135; PULSE 54–71; RESP 12–20; O2SAT 93–98
--- NOTE | ~2020-08-14 | XR_ITS ---
EXAMINATION: XR chest 1V portable EXAM DATE: 08/14/2020 09:46 INDICATION: Left-sided chest pain. TECHNIQUE: Portable AP frontal chest x-ray was obtained. Comparison is made to prior examination from 07/01/2020. FINDINGS: Scattered granulomata. The lungs are otherwise clear. There are no pleural effusions. Car diac silhouette is prominent but magnified on this AP technique. There is no pneumothorax suspected . The bones and soft tissues are unremarkable. IMPRESSION: No acute cardiopulmonary findings. Reviewed, dictated and finalized at location A. [employer]
--- NOTE | 2020-08-14 08:52 | ECG_ITS ---
Measurements Intervals [place] Rate: 71 P: 26 [place]: 140 QRS: -59 QRSD: 125 T: 77 QT: 396 QTc: 433 Interpretive Statements SINUS RHYTHM LEFT AXIS DEVIATION INTRAVENTRICULAR CONDUCTION DELAY CANNOT RULE OUT SEPTAL INFARCT, AGE INDETERMINATE BORDERLINE ST-T WAVE ABNORMALITY- HIGH LATERAL LEADS BASELINE ARTIFACT- I, II, AVR ABNORMAL ECG Electronically Signed On 08-14-2020 9:30:30 SENIOR SAFETY MANAGEMENT CONSULTANT by Morgan Blanchard D.O.
--- NOTE | 2020-08-14 09:28 | ED.CHESTPAIN ---
HPI - Chest Pain General Chief Complaint: Chest Pain Stated Complaint: cp Time Seen by Provider: 08/14/20 08:56 Source: patient Mode of arrival: ambulatory Limitations: no limitations History of Present Illness HPI narrative: This patient is an 84 year old Caucausian female who presents from home for an evaluation of left chest pain. She reports she noticed severe sharp left chest pain at 2 am this morning. This pain is nonradiating. She reports she prayed and she no longer has pain. She wants to make sure the pain was not due to her heart. She is also worried that her pain is a reaction to Moxifloxocin that she is taking. She was discharged from the hospital recently after treatment for diverticulitis. She took the medication a 9 am yesterday morning. She denies abdominal pain. She denies dizziness, sob, cough, fever, nausea, vomiting or diaphoresis. Related Data Home Medications Medication Instructions Recorded Confirmed Adults Multivitamin 1 tablet PO DAILY 07/01/20 08/06/20 moxifloxacin mg 08/14/20 Allergies Allergy/AdvReac Type Severity Reaction Status Date / Time sulfamethoxazole AdvReac Rash Verified 08/14/20 09:07 [From Sulfamethoxazole-Trimethoprim] trimethoprim AdvReac Rash Verified 08/14/20 09:07 [From Sulfamethoxazole-Trimethoprim] Review of Systems Review of Systems: All systems reviewed & are unremarkable except as noted in HPI and below Constitutional: Constitutional: Denies chills and Denies fever(s) Cardiovascular: Cardiovascular: Reports chest pain, Denies rapid heart rate and Denies radiating jaw, neck or arm pain Respiratory: Respiratory: Denies cough and Denies dyspnea Gastrointestinal: Gastrointestinal: Denies abdominal pain, Denies nausea and Denies vomiting [facility] Past Medical History Medical History (Updated 08/14/20 @ 13:00 by Tomeka Colon MD) Poliomyelitis Surgical History Surgical History (Updated 08/06/20 @ 20:47 by Selin King PA-C) History of bilateral cataract extraction History of orthopedic surgery Right heel cord lengthening as a child. Family History Family History Son Diabetes mellitus COPD (chronic obstructive pulmonary disease) Father Cerebrovascular accident Mother Bladder cancer Sibling Lung cancer Social History Social History (Updated 08/06/20 @ 20:48 by Selin King PA-C) Social History: She is and lives in her own home in [place]. She is independent activities of daily living and still drives. She had 5 children , 1 in his 50s from complications of type 1 diabetes, the other for are reportedly healthy. She denies alcohol, tobacco, illicit substance use. Her daughter Adia is her surrogate decision maker and she wishes to be a full code. Smoking status: Never smoker Alcohol intake: former Substance use: never Substance use type: does not use Gender identity (if verbalized by the patient): Female Spiritual care concerns: No Exam Const: General: no acute distress and alert Orientation/consciousness: patient oriented x3 HENMT: Head: atraumatic Ears: TM's normal bilaterally Face and sinus: face symmetric Mouth: Yes Normal oral and palatal mucosa present, Yes lip normal, Yes oropharynx normal and Yes moist mucous membranes Eyes: EOM: EOMs intact bilaterally Chest: Chest palpation & inspection: tenderness (left anterior chest tenderness) Resp: Effort & Inspection: normal respiratory effort and no retractions Auscultation: clear to auscultation bilaterally Cardio: Rate: regular rate Rhythm: regular rhythm Heart sounds: no murmurs GI: GI Palp: Yes Soft to palpation, No Tenderness to palpation present (GI), No Guarding due to palpation present (GI) and No Rigid due to palpation Auscultation: normal bowel sounds Skin: General skin exam: normal color Rashes: no rashes Neuro: General: patient
[2020-08-14 09:29] LABS: Basophils Absolute Auto 0.1 K/mm3 (0.0-0.1); Basophils Percent Auto 0.8 % (0.2-1.2); Eosinophils Absolute Auto 0.2 K/mm3 (0-0.3); Eosinophils Percent Auto 2.4 % (0-4.4); Hematocrit 43.1 % (37.0-47.0); Hemoglobin 14.6 g/dL (12.0-15.0); Immature Granulocyte Absolute 0.03 K/mm3 (0.00-0.031); Immature Granulocyte Percent A 0.4 % (0-0.5); Lymphocytes Absolute Auto 2.06 K/mm3 (0.9-3.2); Mean Corpuscular HGB Conc 33.9 g/dl (32-36); Mean Corpuscular Hemoglobin 31.4 pg (26-34); Mean Corpuscular Volume 92.7 fl (80-100); Mean Platelet Volume 9.1 fl (7.4-10.4); Monocytes Absolute Auto 0.7 K/mm3 (0.1-0.6); Monocytes Percent Auto 10.1 % (2.6-8.5); Neutrophils Absolute Auto 4.1 K/mm3 (1.3-6.7); Neutrophils Percent Auto 57.3 % (45.5-73.1); Platelet Count Result 307 k/mm3 (150-375); Red Blood Count 4.65 M/mm3 (4.2-5.4); White Blood Count 7.1 K/mm3 (4.5-10.0)
[2020-08-14 09:38] LABS: Prothrombin Time 13.9 Seconds (11.1-14.7)
[2020-08-14 09:39] LABS: Partial Thromboplastin Time 29.2 SECONDS (22.3-36.8)
[2020-08-14 09:55] LABS: Anion Gap 11 mmol/L (8-16); Blood Urea Nitrogen 6 mg/dL (7-17); Calcium 9.3 mg/dL (8.4-10.2); Carbon Dioxide 23 mmol/L (22-30); Chloride 106 mmol/L (98-107); Estimated CRCL calculation 47 ml/min; Estimated Glomerular Filt Rate > 60; Glucose 129 mg/dL (65-105); Potassium 4.2 mmol/L (3.4-5.0); Sodium 140 mmol/L (137-145)
[2020-08-14 10:07] LABS: Troponin I < 0.012 ng/mL (0.000-0.034)
[2020-08-14 12:50] LABS: Troponin I < 0.012 ng/mL (0.000-0.034)
== END 2020-08-14 13:33 | disposition home or self-care (01) ==
PROVIDERS: Emergency Provider General Practice; PCP Physician Assistant
DX: R07.89 Other chest pain (principal); Z86.12 Personal history of poliomyelitis; I45.9 Conduction disorder, unspecified; R94.31 Abnormal electrocardiogram [ECG] [EKG]; Z98.42 Cataract extraction status, left eye; Z98.41 Cataract extraction status, right eye
CPT/HCPCS: 36415; 71045; 80048; 84484; 85025; 85610; 85730; 93005; 99284

== ENCOUNTER 2022-08-30 12:59 | Emergency (ER) | payer MEDICARE, SELFPAY ==
[2022-08-30 13:40] VITALS: BP 156/65; PULSE 75; RESP 18; TEMP 36.6; O2SAT 98
--- NOTE | 2022-08-30 14:00 | ED.GENADULT ---
HPI - General Adult General Chief complaint: Ear Stated complaint: Dizziness Source: patient and family Mode of arrival: ambulatory Limitations: no limitations History of Present Illness HPI narrative: Patient presents for evaluation of right-sided ear discomfort. She initially informed me that she was having symptoms for a few days but later indicates that it has been intermittently bothersome for a few weeks. She denies any hearing loss. Her granddaughter indicates that she called her today and indicated that she was getting dizzy and felt like she may pass out. Her granddaughter evaluated her and told her that it looked like something was in her right ear canal. Patient denies any fever, chills, sore throat, respiratory symptoms. She does reports cleaning her ears with Q tips. Related Data Home Medications Medication Instructions Recorded Confirmed multivit with minerals-iron 18 1 tablet PO DAILY 07/01/20 08/30/22 mg-folic ac 400 mcg-vit K 25 mcg tablet (Adults Multivitamin) omeprazole 40 mg capsule,delayed 40 mg PO DAILY 08/30/22 08/30/22 release Allergies Allergy/AdvReac Type Severity Reaction Status Date / Time sulfamethoxazole AdvReac Rash Verified 08/30/22 13:14 [From Sulfamethoxazole-Trimethoprim] trimethoprim AdvReac Rash Verified 08/30/22 13:14 [From Sulfamethoxazole-Trimethoprim] Review of Systems Review of Systems: CONSTITUTIONAL: Denies fever, chills, or sweats. EYES: Denies visual changes, redness, or discharge. ENT: Reports right-sided ear pain. Denies rhinorrhea, congestion, or sore throat CARDIOVASCULAR: Denies chest pain, palpitations, or edema. RESPIRATORY: Denies cough or dyspnea. GASTROINTESTINAL: Denies abdominal pain, nausea, vomiting, or diarrhea. GENITOURINARY: Denies dysuria or hematuria. SKIN: Denies rash or itching. MUSCULOSKELETAL: Denies back pain, joint pain, or myalgia. NEUROLOGIC: Denies headache, numbness, dizziness, or weakness. PSYCHIATRIC: Denies anxiety or depression. [facility] Past Medical History Medical History Diverticulosis Poliomyelitis Surgical History Surgical History History of bilateral cataract extraction History of orthopedic surgery Right heel cord lengthening as a child. Family History Family History Son Diabetes mellitus COPD (chronic obstructive pulmonary disease) Father Cerebrovascular accident Mother Bladder cancer Sibling Lung cancer Social History Social History Social History: She is and lives in her own home in [place]. She is independent activities of daily living and still drives. She had 5 children , 1 in his 50s from complications of type 1 diabetes, the other for are reportedly healthy. She denies alcohol, tobacco, illicit substance use. Her daughter Adia is her surrogate decision maker and she wishes to be a full code. Smoking status: Never smoker Alcohol intake: former Substance use: never Substance use type: does not use Gender identity (if verbalized by the patient): Female Sexual Orientation (if Verbalized by the Patient): Straight or Heterosexual Spiritual care concerns: No Exam Narrative: GENERAL: Well-appearing, well-nourished, and in no acute distress. HEAD: Normocephalic, atraumatic. EYES: PERRLA and EOMI. ENT: Nares clear, no rhinorrhea or epistaxis. Mucous membranes moist. Oropharynx without tonsillar hypertrophy exudate or other lesions. There is white/yellow exudate in the right ear canal which prevents me from visualize in the right TM. Her left ear canal curves which makes full visualization of the left tympanic membrane challenging NECK: Supple. No adenopathy or masses. No carotid bruits or JVD CH
== END 2022-08-30 14:25 | disposition home or self-care (01) ==
PROVIDERS: Emergency Provider Nurse Practitioner; PCP Physician Assistant
DX: H66.91 Otitis media, unspecified, right ear (principal); H60.91 Unspecified otitis externa, right ear
CPT/HCPCS: 99213; A9270; G0463

== ENCOUNTER 2023-06-14 15:05 | Emergency (ER) | payer MEDICARE, SELFPAY ==
[2023-06-14] VITALS (18 sets, daily range): BP systolic 137–164; BP diastolic 60–85; PULSE 51–73; RESP 14–22; TEMP 36.4; O2SAT 93–100
--- NOTE | ~2023-06-14 | CT_ITS ---
EXAMINATION: CT brain wo con DATE: 06/14/2023 19:40 INDICATION: Headache, dizziness TECHNIQUE: Computed tomography (CT) of the head was performed without intravenous contrast. The mA wa s adjusted according to patient size. Iterative reconstruction technique was employed. Exam dose: 60 5.33 mGy-cm total exam DLP. COMPARISON: 07/01/2020 CT brain FINDINGS: Bilateral vertebral artery and internal carotid artery intracranial calcifications. There i s nonspecific diminished attenuation of the cerebral white matter, likely due to chronic small vessel ischemic changes. There are bilateral basal ganglia calcifications. There is central and cortical cerebral and cerebellar volume loss. No intracranial mass lesion or hemorrhage or cerebrovascular accident, midline shift or mass effect o r subdural or epidural hematoma is detected. Probable old blowout fracture of the medial wall of the left orbit. No skull fracture or bone destruc tion is detected. The paranasal sinuses and mastoid air cells are normally developed and aerated. IMPRESSION: Cerebral and cerebellar atrophy Cerebral atherosclerosis and chronic small vessel ischemic changes of the cerebral white matter No acute intracranial finding Reviewed, dictated and finalized at [facility] Reviewed, dictated and finalized at [facility]. IMPRESSION: Cerebral and cerebellar atrophy Cerebral atherosclerosis and chronic small vessel ischemic changes of the cereb ral white matter No acute intracranial finding
--- NOTE | ~2023-06-14 | XR_ITS ---
XR chest 2V DATE: 06/14/2023 19:36 INDICATION: Chest discomfort TECHNIQUE: AP and lateral views COMPARISON: 08/14/2020 portable AP chest FINDINGS: Mild infiltrate or atelectasis at the lung bases. Cardiomegaly. Aortic calcification and unfolding. No hilar or mediastinal enlargement. No pleural effusion or pulmonary vascular congestion or pneumothorax. Diffuse osteopenia. IMPRESSION: Cardiomegaly, aortic atherosclerosis Mild infiltrate or atelectasis at the lung bases Reviewed, dictated and finalized at [facility].
--- NOTE | 2023-06-14 15:38 | ECG_ITS ---
Measurements Intervals [place] Rate: 72 P: 48 AR: 144 QRS: -64 QRSD: 114 T: 73 QT: 385 QTc: 422 Interpretive Statements SINUS RHYTHM LEFT AXIS DEVIATION INTRAVENTRICULAR CONDUCTION DELAY LOW QRS VOLTAGE IN PRECORDIAL LEADS ANTEROSEPTAL INFARCT, AGE INDETERMINATE BORDERLINE ST-T WAVE ABNORMALITY- HIGH LATERAL LEADS ABNORMAL ECG COMPARED TO ECG 08/14/2020 08:57:59 NO SIGNIFICANT CHANGES Electronically Signed On 06-14-2023 18:09:14 CDT by Morgan Blanchard D.O.
[2023-06-14 16:06] LABS: Basophils Absolute Auto 0.1 K/mm3 (0.0-0.1); Eosinophils Absolute Auto 0.3 K/mm3 (0-0.3); Eosinophils Percent Auto 3.2 % (0-4.4); Hematocrit 44.8 % (37.0-47.0); Hemoglobin 14.7 g/dL (12.0-15.0); Immature Granulocyte Absolute 0.02 K/mm3 (0.00-0.031); Immature Granulocyte Percent A 0.2 % (0-0.5); Lymphocytes Absolute Auto 2.65 K/mm3 (0.9-3.2); Lymphocytes Percent Auto 32.8 % (18.3-44.2); Mean Corpuscular HGB Conc 32.8 g/dl (32-36); Mean Corpuscular Hemoglobin 30.7 pg (26-34); Mean Corpuscular Volume 93.5 fl (80-100); Mean Platelet Volume 9.1 fl (7.4-10.4); Monocytes Absolute Auto 0.7 K/mm3 (0.1-0.6); Monocytes Percent Auto 8.4 % (2.6-8.5); Neutrophils Absolute Auto 4.4 K/mm3 (1.3-6.7); Neutrophils Percent Auto 54.4 % (45.5-73.1); Platelet Count Result 246 k/mm3 (150-375); Red Blood Count 4.79 M/mm3 (4.2-5.4); Red Cell Distribution Width 12.9 % (11.5-14.5); White Blood Count 8.1 K/mm3 (4.5-10.0)
[2023-06-14 16:18] LABS: Alanine Aminotransferase 20 U/L (6-35); Albumin Level 4.4 g/dL (3.5-5.1); Alkaline Phosphatase 52 U/L (38-126); Anion Gap 9 mmol/L (8-16); Aspartate Amino Transferase 30 U/L (14-36); Bilirubin,Total 0.5 mg/dL (0.2-1.3); Blood Urea Nitrogen 9 mg/dL (7-17); Calcium 9.2 mg/dL (8.4-10.2); Carbon Dioxide 26 mmol/L (22-30); Chloride 104 mmol/L (98-107); Estimated CRCL calculation 44 ml/min; Estimated Glomerular Filt Rate > 60; Glucose 136 mg/dL (65-110); Potassium 3.9 mmol/L (3.4-5.0); Sodium 139 mmol/L (137-145)
--- NOTE | 2023-06-14 19:12 | ED.SYNCOPE ---
HPI - Syncope General Chief Complaint: Syncope Stated Complaint: near syncopal Time Seen by Provider: 06/14/23 18:52 Source: patient and family (daughter in law) Limitations: no limitations History of Present Illness HPI narrative: Patient is a 87-year-old female present to the emergency department accompanied by [id number] for multiple episodes of near syncope. Patient notes approximately 2 days ago she began noticing sensations of lightheadedness as if she was going to pass out when she would try to get up and move around. Patient she had 1 episode yesterday morning in addition to 2 episodes this morning both of which were associated with movement. Patient denies any dizziness at rest or recurrence of symptoms without movement. Patient denies any history this in the past. Patient denies palpitations, diaphoresis, numbness, weakness, vision changes, dysarthria, dysphagia, hearing changes, ear pain, neck pain, fever, cough, diarrhea, vomiting, melena, hematochezia, dysuria, urinary urgency, urinary frequency. Patient denies any new or changed medications. Patient denies recent injuries or recent illness. Patient notes that she does feel like she is slightly dehydrated. Patient admits to recent treatment for urinary tract infection with Macrobid approximate 3 weeks ago that was taken to completion and has not had any recurrence of symptoms. Patient admits to a mild headache that started suddenly in the frontal region yesterday morning and is nonradiating and denies any history of this headache in the past and has not tried any for the headache noting that it is mild in intensity and constant. Patient does admit to an abnormal sensation throughout her chest diffusely that is nonradiating is unsure as to how long its been going on but did mention it to her [id number] in the waiting room today and says that it feels like a discomfort but does not elaborate further when asked as she doesn't have any at this time. Denies shortness of breath. Denies history of abnormal heart rhythms. Patient also notes that while she is here she has had these lumps on both of her breasts for many years that have overall decreased in size and are bilateral and of never been evaluated by anyone before. Patient denies any discharge or tenderness of the bones. Patient is unsure as to whether or not she is ever had mammograms in the past. Patient denies history of seizures or biting her tongue. Patient notes that she lives at home alone. Related Data Home Medications Medication Instructions Recorded Confirmed multivit with minerals-iron 18 1 tablet PO DAILY 07/01/20 08/30/22 mg-folic ac 400 mcg-vit K 25 mcg tablet (Adults Multivitamin) omeprazole 40 mg capsule,delayed 40 mg PO DAILY 08/30/22 08/30/22 release Allergies Allergy/AdvReac Type Severity Reaction Status Date / Time Penicillins Allergy Unknown Verified 06/14/23 15:39 sulfamethoxazole AdvReac Rash Verified 08/30/22 13:14 [From Sulfamethoxazole-Trimethoprim] trimethoprim AdvReac Rash Verified 08/30/22 13:14 [From Sulfamethoxazole-Trimethoprim] Review of Systems Review of Systems: A 10 system review of systems was completed on the patient and is negative except for what is stated in the HPI. Nursing and ancillary documentation was reviewed. [facility] Past Medical History Medical History Diverticulosis Poliomyelitis Surgical History Surgical History History of bilateral cataract extraction History of orthopedic surgery Right heel cord lengthening as a child. Family History Family History Son Diabetes mellitus COPD (chronic obstructive pulmonary disease) Father Cerebrovascular accident Mother Bladder cancer Sibling Lung cancer Social History Social History
[2023-06-14 20:03] LABS: NT Pro B Type Natriuretic Pept 129 pg/mL (19.9-100); Troponin I < 0.012 ng/mL (0.000-0.034)
[2023-06-14] MEDS: LACTATED RINGERS 1,000 ML 999 ML IV CONT (20:12)
[2023-06-14] MEDS: ACETAMINOPHEN 500 MG TABLET 1000 MG PO (20:13)
[2023-06-14 20:36] LABS: Prothrombin Time 13.9 Seconds (11.1-14.7)
[2023-06-14 20:56] LABS: Appearance Urine Clear (Clear); Bacteria Urine None Seen /hpf; Bilirubin Urine Negative (Negative); Blood Urine Negative (Negative); Color Urine Yellow (Yellow); Glucose Urine UA Negative (Negative); Ketones Urine Negative (Negative); Leukocyte Esterase Ur 1+ LEU/UL (Negative); Nitrate Urine Negative (Negative); Non Pathogenic Casts 0-2; Protein Urine Negative (Negative); RBC Urine 0-2 /hpf (0-2); Specific Grav Ur 1.011 (1.001-1.035); Squamous Epithelial Cell Urine None seen /hpf (Few); Urobilinogen Urine 0.2 mg/dL (<2.0)
[2023-06-14 21:01] LABS: Add Urine Microscopic? YES
[2023-06-14 22:08] LABS: Troponin I < 0.012 ng/mL (0.000-0.034)
[2023-06-14 23:56] LABS: Free T4 Free Thyroxine Reflex 1.14 ng/dL (0.78-2.19)
[2023-06-15 03:29] LABS: Total Triiodothyronine (T3) > 7.81 NG/ML (0.97-1.69)
== END 2023-06-14 22:20 | disposition home or self-care (01) ==
PROVIDERS: Emergency Medicine; Emergency Provider Student in an Organized Health Care Education/Training Program
DX: N39.0 Urinary tract infection, site not specified (principal); R55 Syncope and collapse; E86.0 Dehydration; Z86.12 Personal history of poliomyelitis; Z98.42 Cataract extraction status, left eye; Z98.41 Cataract extraction status, right eye; I45.9 Conduction disorder, unspecified; R94.31 Abnormal electrocardiogram [ECG] [EKG]; I51.7 Cardiomegaly; I70.0 Atherosclerosis of aorta; I67.2 Cerebral atherosclerosis
CPT/HCPCS: 36415; 70450; 71046; 80053; 81001; 83735; 83880; 84439; 84443; 84480; 84484; 85025; 85380; 85610; 85730; 87086; 87088; 93005; 96360; 99284; A9270; J7120

== ENCOUNTER 2023-12-05 15:47 | Emergency (ER) | payer MEDICARE, SELFPAY ==
[2023-12-05 16:08] VITALS: BP 142/70; RESP 16; TEMP 37.3; O2SAT 93
--- NOTE | 2023-12-05 16:15 | ED.WEAKNESS ---
HPI - Weakness General Chief complaint: Weakness Stated complaint: Weakness/Fatigue Time Seen by Provider: 12/05/23 16:15 Source: patient Mode of arrival: ambulatory Limitations: no limitations History of Present Illness HPI Narrative: 87 y/o female with hx breast cancer presented for c/o weakness for about one week. States she feels when when standing and walking. She is accompanied by son who also provides HPI information as pt has some forgetfulness. Pt denies cp, palpitations, sob, cough, n/v/d/f/c, urinary complaints or dizziness. Related Data Home Medications Medication Instructions Recorded Confirmed multivit with minerals-iron 18 1 tablet PO DAILY 07/01/20 12/05/23 mg-folic ac 400 mcg-vit K 25 mcg tablet (Adults Multivitamin) omeprazole 40 mg capsule,delayed 40 mg PO DAILY 08/30/22 12/05/23 release anastrozole 1 mg tablet 1 mg PO DAILY 12/05/23 12/05/23 Allergies Allergy/AdvReac Type Severity Reaction Status Date / Time Penicillins Allergy Unknown Verified 12/05/23 16:09 sulfamethoxazole AdvReac Rash Verified 12/05/23 16:09 [From Sulfamethoxazole-Trimethoprim] trimethoprim AdvReac Rash Verified 12/05/23 16:09 [From Sulfamethoxazole-Trimethoprim] Review of Systems Review of Systems: CONSTITUTIONAL: reports weakness Denies body aches, fever, chills, or sweats. EYES: Denies visual changes, redness, or discharge. ENT: Denies rhinorrhea, congestion, sore throat, or otalgia. CARDIOVASCULAR: Denies chest pain, palpitations, or edema. RESPIRATORY: Denies cough or dyspnea. GASTROINTESTINAL: Denies abdominal pain, nausea, vomiting, or diarrhea. GENITOURINARY: Denies dysuria or hematuria. SKIN: Denies rash, itching, or wounds. MUSCULOSKELETAL: Denies back pain, joint pain, or myalgia. NEUROLOGIC: Denies headache, numbness, tingling, or weakness. All systems reviewed & are unremarkable except as noted in HPI and below PMFSH Past Medical History Medical History Breast cancer Diverticulosis Poliomyelitis Surgical History Surgical History History of bilateral cataract extraction History of orthopedic surgery Right heel cord lengthening as a child. Family History Family History Son Diabetes mellitus COPD (chronic obstructive pulmonary disease) Father Cerebrovascular accident Mother Bladder cancer Sibling Lung cancer Social History Social History Social History: She is and lives in her own home in [place]. She is independent activities of daily living and still drives. She had 5 children , 1 in his 50s from complications of type 1 diabetes, the other for are reportedly healthy. She denies alcohol, tobacco, illicit substance use. Her daughter Adia is her surrogate decision maker and she wishes to be a full code. Smoking status: Never smoker Alcohol intake: former Substance use: never Substance use type: does not use Gender identity (if verbalized by the patient): Female Sexual Orientation (if Verbalized by the Patient): Straight or Heterosexual Spiritual care concerns: No Comments At time of signature, I have reviewed and agree with nursing past medical, surgical, social and family history unless otherwise noted. Please see nursing chart for further information. There is no relevant family history pertinent to the presenting complaint Exam Narrative: GENERAL: Well-appearing, well-nourished, and in no acute distress. HEAD: Normocephalic, atraumatic. EYES: EOMI. No redness or drainage. Conjunctivae normal. ENT: Mucous membranes pink and moist. No rhinorrhea. NECK: Normal AROM. Supple. No lymphadenopathy. CHEST: No respiratory distress. Clear to auscultation. HEART: Regular rate and rhythm. No murmur
--- NOTE | 2023-12-05 16:36 | ECG_ITS ---
Measurements Intervals [place] Rate: 69 P: 22 NE: 140 QRS: -51 QRSD: 110 T: 26 QT: 397 QTc: 427 Interpretive Statements SINUS RHYTHM LEFT AXIS DEVIATION CONSIDER EXTENSIVE ANTERIOR INFARCT, AGE INDETERMINATE CONSIDER INFERIOR INFARCT, AGE INDETERMINATE BASELINE ARTIFACT- I, III, AVR, AVL, V1, V3-V6 ABNORMAL ECG COMPARED TO ECG 06/14/2023 15:44:57 NO SIGNIFICANT CHANGES Electronically Signed On 12-06-2023 6:29:16 CDT by Morgan Blanchard D.O.
== END 2023-12-05 17:11 | disposition left against medical advice (07) ==
PROVIDERS: Emergency Provider Nurse Practitioner Family
DX: R53.1 Weakness (principal); Z85.3 Personal history of malignant neoplasm of breast
CPT/HCPCS: 81003; 87086; 93005; 99213; G0463